=== PATIENT | female | born 2000 | race African-American/Black ===

== ENCOUNTER 2018-06-14 09:45 | Emergency (ER) | payer SELFPAY ==
[~2018-06-14] VITALS: Ht 162.6 cm; Wt 113.6 kg
[2018-06-14 10:20] VITALS: Ht 162.6 cm; Wt 113.6 kg
[2018-06-14] MEDS ORDERED: VOLTAREN75 MG PO (11:53)
[2018-06-14 12:05] VITALS: BP 120/71
== END 2018-06-14 12:07 | disposition home or self-care (01) ==
LOC: D.ER 09:45
DX: R51 Headache (principal); F17.200 Nicotine dependence, unspecified, uncomplicated